=== PATIENT | female | born 1945 | race Caucasian/White ===

== ENCOUNTER → 2016-07-25 | Outpatient (CLI) | payer OTHER ==
--- NOTE | 2016-07-25 09:31 | US ---
Bilateral Duplex Carotid Sonography Clinical Indications: 71-year-old female with optical migraine headaches and a history of a CVA in 05 04 with a subsequent left carotid endarterectomy. The patient has medically-controlled hypertension, diabetes, and has been a light smoker for 30 years (although is quitting). Evaluate for hemodynamical ly significant stenosis. ICD 10 Diagnostic Code: H53.9. Technique: The cervical portions of the carotid and vertebral arteries were imaged and interrogated by color and pulsed Doppler. Spectral analysis was performed. Cine clips are stored on PACS. Comparison Study: Carotid doppler sonography, dated January 05, 2012. Findings: Right Carotid Artery: The common carotid artery, bifurcation, and origin of the internal and externa l carotid artery are well imaged. Doppler velocity estimates and color Doppler spectra are evaluated . There is obtusely-marginated eccentric predominantly soft plaque with minimal associated calcificat ion involving the right carotid bulb and the internal carotid artery. This is nicely demonstrated on the cine clips. The peak systolic velocity in the internal carotid artery is 130 cm/sec, and the peak diastolic velocity is 23 cm/sec. This would indicate a mean diameter stenosis of 50%. The peak systo lic velocity in the carotid bulb is 127 cm/sec. The external carotid artery has a peak systolic veloc ity of 109 cm/sec. The ICA to CCA peak systolic velocity ratio is 2.3, which is mildly elevated, and the end diastolic velocity ratio is 1.9. Left Carotid Artery: The patient historical has had a prior left carotid endarterectomy. The common carotid artery, bifurcation, and origin of the internal and external carotid artery are well imaged. Doppler velocity estimates and color Doppler spectra are normal, with no sonographic evidence of a f low-limiting stenosis. The peak systolic velocity in the internal carotid artery is 65 cm/sec, with a peak diastolic velocity of 21 cm/sec. The ICA to CCA systolic and diastolic velocity ratios are norm al. Vertebral Arteries: Antegrade flow is shown by pulsed Doppler of each vertebral artery. The peak sys tolic velocity in the right vertebral artery is 75 cm/sec, and on the left side measures 43 cm/sec. Impression: 1. Status post left carotid endarterectomy, with no hemodynamically significant stenosis. 2. Eccentric predominantly soft plaque involving the right carotid bulb and the right internal caroti d artery, with an estimated 50% mean diameter stenosis. 3. Patent, antegrade vertebral arteries. Measurement of carotid stenosis is based on velocity parameters that correlate the residual internal carotid diameter with [place] Symptomatic Carotid Endarterectomy Trial (NASCET) based stenosis levels.
== END ==
LOC: BRMIMAGING 08:22
PROVIDERS: ATTEND Psychiatry & Neurology Neurology
DX: Z98.890 Other specified postprocedural states (principal); I65.21 Occlusion and stenosis of right carotid artery; H53.9 Unspecified visual disturbance; I10 Essential (primary) hypertension; E11.9 Type 2 diabetes mellitus without complications; Z72.0 Tobacco use; Z86.73 Personal history of transient ischemic attack (TIA), and cerebral infarction without residual deficits
CPT/HCPCS: 93880-PO

== ENCOUNTER → 2016-07-27 | Outpatient (CLI) | payer OTHER ==
--- NOTE | 2016-07-27 14:43 | CPEEG ---
[f rep st] ELECTROENCEPHALOGRAM ELECTROENCEPHALOGRAM. DATE OF STUDY: 07/27/2016 DATE OF INTERPRETATION: July 27, 2016. INTERPRETATION: Essentially normal EEG during wakefulness and partial sleep. There are no potential ly epileptogenic abnormalities present on the recording. REPORT: This EEG contains 9-10 Hz alpha activity of the posterior head regions. There was no abnorm al activation at rest, during photic stimulation, or hyperventilation. The patient became drowsy and fell into a light sleep during the study. During drowsiness, the patient had intermittent bitempora l rhythmic delta slowing. This can be a normal drowsy variant in this age group. There was no abnor mal activation during drowsiness, light sleep, or during times of arousal. /[id number]/MODL
== END ==
LOC: FCPNEURO 09:12
PROVIDERS: ATTEND Psychiatry & Neurology Neurology
DX: H53.9 Unspecified visual disturbance (principal)

== ENCOUNTER → 2017-09-05 | Outpatient (CLI) | payer OTHER | LOC: BMCIMAGING 16:15 | PROVIDERS: ATTEND Internal Medicine | DX: J98.11 Atelectasis (principal) ==

== ENCOUNTER → 2017-11-14 | Outpatient (CLI) | payer OTHER | LOC: BMCIMAGING 15:08 | PROVIDERS: ATTEND Orthopaedic Surgery Hand Surgery | DX: M25.741 Osteophyte, right hand (principal); M19.041 Primary osteoarthritis, right hand ==

== ENCOUNTER → 2018-01-13 | Outpatient (CLI) | payer OTHER | LOC: BMCIMAGING 13:54 | PROVIDERS: ATTEND Family Medicine | DX: R07.89 Other chest pain (principal); R93.7 Abnormal findings on diagnostic imaging of other parts of musculoskeletal system ==

== ENCOUNTER → 2018-12-14 | Outpatient (CLI) | payer OTHER | LOC: BMCIMAGING 08:48 ==